=== PATIENT | male | born 1970 | race Caucasian/White ===

== ENCOUNTER → 2018-04-09 | Outpatient (CLI) | payer BC ==
[~2018-04-09] MED LIST: AMOX250C17 PO; FINA5TAB4 PO; MELO15TA24 PO; MINO50CA3 PO; PHEN15CA2 PO; PRED5TAB PO; TOPI15CA PO
== END | disposition home or self-care (01) ==
LOC: RAD 14:55
PROVIDERS: ATTEND Nurse Practitioner
DX: J98.4 Other disorders of lung (principal); R59.0 Localized enlarged lymph nodes; K22.8 Other specified diseases of esophagus; I25.10 Atherosclerotic heart disease of native coronary artery without angina pectoris; Z87.891 Personal history of nicotine dependence
CPT/HCPCS: 71250

== ENCOUNTER 2018-04-10 09:50 | Day surgery (SDC) | payer BC ==
[~2018-04-10] VITALS: Ht 177.8 cm; Wt 98.9 kg
[2018-04-10 10:19] VITALS: BP 113/76
[2018-04-10] MEDS ORDERED: MELO15TA24 PO (10:29)
[2018-04-10] MEDS ORDERED: PHEN15CA2 PO (10:29)
[2018-04-10] MEDS ORDERED: MINO50CA3 PO (10:29)
[2018-04-10] MEDS ORDERED: PRED5TAB PO (10:29)
[2018-04-10] MEDS ORDERED: FINA5TAB4 PO (10:29)
[2018-04-10] MEDS ORDERED: TOPI15CA PO (10:29)
[2018-04-10] MEDS ORDERED: AMOX250C17 PO (11:26)
[2018-04-10] MEDS ORDERED: FENTANYL PF 100 MCG/2ML ONE (11:33)
[2018-04-10] MEDS ORDERED: MIDAZOLAM 1 MG/ML, 5ML ONE (11:33)
[2018-04-10] MEDS ORDERED: SODIUM CHLORIDE 0.9% 1,000 ML IV SCH (11:52)
[2018-04-10 11:55] LABS: BASOPHILS # (AUTO) 0.08 x10^3/uL (0-0.1); BASOPHILS % (AUTO) 1 % (0-1); EOSINOPHILS % (AUTO) 3 % (1-7); LYMPHOCYTES # (AUTO) 2.35 x10^3/uL (1-3.4); LYMPHOCYTES % (AUTO) 25 % (22-44); MD NO; MEAN CORPUSCULAR HEMOGLOBIN 28.3 pg (27.5-34.5); MEAN CORPUSCULAR HGB CONC 33.8 g/dL (33.2-36.2); MEAN CORPUSCULAR VOLUME 83.7 fL (81-97); MEAN PLATELET VOLUME 7.2 fL (7.4-10.4); MONOCYTES # (AUTO) 0.71 x10^3/uL (0.2-0.8); MONOCYTES % (AUTO) 8 % (2-9); NEUTROPHILS # (AUTO) 6.06 x10^3/uL (1.8-6.8); NEUTROPHILS % (AUTO) 64 % (42-75); PLATELET COUNT 331 x10^3/uL (130-400); RED BLOOD COUNT 5.42 x10^6/uL (4.38-5.82)
[2018-04-10] MEDS ORDERED: LIDOCAINE 1%, 50ML ONE (12:00)
[2018-04-10] MEDS ORDERED: LIDOCAINE 4% TOPICAL SOLUTION 50 ML ONE (12:00)
[2018-04-10] MEDS ORDERED: LIDOCAINE GEL 2%, 5ML ONE (12:00)
[2018-04-10 12:02] LABS: PROTHROMBIN TIME 10.4 Seconds (9.6-11.5)
== END 2018-04-10 15:55 | disposition home or self-care (01) ==
LOC: OUT 09:50
PROVIDERS: ATTEND Internal Medicine
DX: J98.4 Other disorders of lung (principal); D71 Functional disorders of polymorphonuclear neutrophils; Z87.01 Personal history of pneumonia (recurrent); Z79.899 Other long term (current) drug therapy; Z88.0 Allergy status to penicillin
CPT/HCPCS: 31624; 31628; 36415; 71045; 85025; 85610; 85730; 87015; 87070; 87102; 87116; 87205; 87206; 88108; 88112; 88305; 99152; 99153; J2250; J3010; J3490

== ENCOUNTER → 2018-05-15 | Outpatient (CLI) | payer BC | END | disposition home or self-care (01) | LOC: CFH 14:57 | PROVIDERS: ATTEND Internal Medicine | DX: R91.8 Other nonspecific abnormal finding of lung field (principal) | CPT/HCPCS: 71250 ==

== ENCOUNTER 2018-10-20 10:16 | Inpatient (IN) | payer BC ==
[~2018-10-20] VITALS: Ht 177.8 cm; Wt 95.0 kg
[2018-10-20] MEDS ORDERED: albuterol inhaler (10:27)
--- NOTE | 2018-10-20 10:27 | NUR ---
pt bib ems for sudden onset left sided cp radiating to back starting today at 07:30. iv established [employer] by ems, ekg complete. conencted to all monitors.vss. edmd to bedside for assessment. awaiting orders.
[2018-10-20] MEDS ORDERED: SODIUM CHLORIDE FLUSH 10ML SYR IVF ONE (10:30)
[2018-10-20] MEDS ORDERED: HYDROmorphone 1 MG/ML, 1ML AMP IVPush PRN (10:30)
[2018-10-20] MEDS ORDERED: HYDROmorphone 1 MG/ML, 1ML VIAL ONE (10:36)
[2018-10-20] MEDS ORDERED: KETOROLAC 30 MG/1 ML IVPush ONE (11:00)
[2018-10-20] MEDS ORDERED: LEVOFLOXACIN/PMX 750MG/150ML 150 ML IVPB ONE (11:00)
[2018-10-20 11:02] LABS: MEAN CORPUSCULAR HEMOGLOBIN 29.2 pg (27.5-34.5); MEAN CORPUSCULAR HGB CONC 33.6 g/dL (33.2-36.2); MEAN CORPUSCULAR VOLUME 86.8 fL (81-97); MEAN PLATELET VOLUME 7.5 fL (7.4-10.4); PLATELET COUNT 288 x10^3/uL (130-400); RED BLOOD COUNT 5.05 x10^6/uL (4.38-5.82)
[2018-10-20 11:13] LABS: ALBUMIN 3.7 g/dL (3.4-5.0); ANION GAP 4 mmol/L (5-15); CALCIUM 8.6 mg/dL (8.5-10.1); CHLORIDE 109 mmol/L (98-107); CREATININE 0.71 mg/dL (0.7-1.3)
[2018-10-20 11:17] LABS: TROPONIN I < 0.015 ng/mL (0.000-0.045)
[2018-10-20] MEDS ORDERED: LEVOFLOXACIN/PMX 750MG/150ML 150 ML ONE (11:18)
[2018-10-20] MEDS ORDERED: KETOROLAC 30 MG/1 ML ONE (11:18)
--- NOTE | 2018-10-20 11:33 | NUR ---
pt medicated per sep. blood cultures x2 drawn prior to starting abx. pt resting in room with lights dimmed. no needs at this time. awaiting lab results.
[2018-10-20 11:44] LABS: BASOPHILS # (AUTO) 0.03 x10^3/uL (0-0.1); BASOPHILS % (AUTO) 0 % (0-1); EOSINOPHILS # (AUTO) 0.05 x10^3/uL (0-0.4); EOSINOPHILS % (AUTO) 0 % (1-7); LYMPHOCYTES # (AUTO) 0.78 x10^3/uL (1-3.4); LYMPHOCYTES % (AUTO) 4 % (22-44); MD SCAN; MONOCYTES # (AUTO) 0.68 x10^3/uL (0.2-0.8); MONOCYTES % (AUTO) 3 % (2-9); NEUTROPHILS # (AUTO) 18.38 x10^3/uL (1.8-6.8); NEUTROPHILS % (AUTO) 92 % (42-75)
[2018-10-20 11:46] LABS: RAPID INFLUENZA A Negative (Negative); RAPID INFLUENZA B Negative (Negative)
--- NOTE | 2018-10-20 12:12 | NUR ---
pt to ct at this time.
--- NOTE | 2018-10-20 12:26 | NUR ---
pt back from ct. no needs expressed. vss. call light wtihin reach.
[2018-10-20] MEDS ORDERED: OMNIPAQUE 350 MG/ML, 100ML BOTTLE ONE (12:32)
[2018-10-20] MEDS ORDERED: LABETALOL 5MG/ML, 20ML IVPush PRN (13:30)
[2018-10-20] MEDS ORDERED: ONDANSETRON 2MG/ML, 2ML IVPush PRN (13:30)
[2018-10-20] MEDS ORDERED: ONDANSETRON ODT 4 MG PO PRN (13:30)
[2018-10-20] MEDS ORDERED: POLYETHYLENE GLYCOL 17 GM PACKET PO PRN (13:30)
[2018-10-20 13:56] LABS: FREE T4 (FREE THYROXINE) 1.21 ng/dL (0.76-1.46)
[2018-10-20] MEDS ORDERED: LEVOFLOXACIN/PMX 750MG/150ML 150 ML IV SCH (14:00)
[2018-10-20 14:58] VITALS: BP 110/75
[2018-10-20] MEDS: GUAIFENESIN 200 MG TABLET PO SCH ×2 (15:10→20:26)
[2018-10-20] MEDS: ACETAMINOPHEN 325 MG TABLET PO PRN (15:25)
[2018-10-20 16:22] LABS: MICROSCOPIC NOT IND
[2018-10-20 16:26] LABS: CULTURE INDICATED? NO
[2018-10-20 19:21] VITALS: BP 113/69
[2018-10-20] MEDS: ENOXAPARIN 40 MG/0.4 ML SQ SCH (20:26)
[2018-10-20] MEDS: IBUPROFEN 600 MG TABLET PO PRN (20:26)
[2018-10-20] MEDS: ALBUTEROL/IPRATROPIUM 2.5MG/0.5MG, 3 ML NPPB SCH (20:47)
[2018-10-21 02:02] VITALS: BP 112/73
[2018-10-21] MEDS: GUAIFENESIN 200 MG TABLET PO SCH ×4 (05:12→20:55)
[2018-10-21 06:07] LABS: BASOPHILS # (AUTO) 0.04 x10^3/uL (0-0.1); BASOPHILS % (AUTO) 0 % (0-1); EOSINOPHILS # (AUTO) 0.11 x10^3/uL (0-0.4); EOSINOPHILS % (AUTO) 1 % (1-7); LYMPHOCYTES # (AUTO) 2.11 x10^3/uL (1-3.4); LYMPHOCYTES % (AUTO) 22 % (22-44); MD NO; MEAN CORPUSCULAR HEMOGLOBIN 29.4 pg (27.5-34.5); MEAN CORPUSCULAR HGB CONC 33.9 g/dL (33.2-36.2); MEAN CORPUSCULAR VOLUME 86.6 fL (81-97); MEAN PLATELET VOLUME 7.5 fL (7.4-10.4); MONOCYTES # (AUTO) 0.53 x10^3/uL (0.2-0.8); MONOCYTES % (AUTO) 6 % (2-9); NEUTROPHILS # (AUTO) 6.91 x10^3/uL (1.8-6.8); NEUTROPHILS % (AUTO) 71 % (42-75); PLATELET COUNT 294 x10^3/uL (130-400); RED BLOOD COUNT 5.06 x10^6/uL (4.38-5.82)
[2018-10-21 06:14] LABS: CHLORIDE 107 mmol/L (98-107)
[2018-10-21 06:32] LABS: ALANINE AMINOTRANSFERASE 30 U/L (12-78); ALBUMIN 3.6 g/dL (3.4-5.0); ALKALINE PHOSPHATASE 75 U/L (45-117); ANION GAP 5 mmol/L (5-15); BILIRUBIN,TOTAL 0.7 mg/dL (0.2-1.0); CALCIUM 9.1 mg/dL (8.5-10.1); THYROID STIMULATING HORMONE 0.478 mIU/L (0.358-3.740); TOTAL PROTEIN 7.1 g/dL (6.4-8.2)
[2018-10-21] MEDS: PANTOPRAZOLE 40 MG IV IVPush SCH (07:55)
[2018-10-21] MEDS: IBUPROFEN 600 MG TABLET PO PRN ×2 (07:56→17:04)
[2018-10-21] MEDS: SENNA/DOCUSATE TABLET PO SCH (07:56)
[2018-10-21 08:36] VITALS: BP 120/80
[2018-10-21] MEDS: ALBUTEROL/IPRATROPIUM 2.5MG/0.5MG, 3 ML NPPB SCH ×2 (09:00→19:33)
[2018-10-21] MEDS: ACETAMINOPHEN 325 MG TABLET PO PRN ×2 (12:21→20:55)
[2018-10-21 14:32] VITALS: BP 119/73
[2018-10-21 19:46] VITALS: BP 115/69
[2018-10-21] MEDS: ENOXAPARIN 40 MG/0.4 ML SQ SCH (20:55)
[2018-10-22 01:44] VITALS: BP 119/67
[2018-10-22] MEDS: GUAIFENESIN 200 MG TABLET PO SCH (05:20)
[2018-10-22 05:53] LABS: BASOPHILS # (AUTO) 0.06 x10^3/uL (0-0.1); BASOPHILS % (AUTO) 1 % (0-1); EOSINOPHILS # (AUTO) 0.21 x10^3/uL (0-0.4); EOSINOPHILS % (AUTO) 3 % (1-7); LYMPHOCYTES # (AUTO) 2.68 x10^3/uL (1-3.4); LYMPHOCYTES % (AUTO) 33 % (22-44); MD NO; MEAN CORPUSCULAR HEMOGLOBIN 28.3 pg (27.5-34.5); MEAN CORPUSCULAR HGB CONC 32.7 g/dL (33.2-36.2); MEAN CORPUSCULAR VOLUME 86.5 fL (81-97); MEAN PLATELET VOLUME 7.5 fL (7.4-10.4); MONOCYTES # (AUTO) 0.59 x10^3/uL (0.2-0.8); MONOCYTES % (AUTO) 7 % (2-9); NEUTROPHILS # (AUTO) 4.64 x10^3/uL (1.8-6.8); NEUTROPHILS % (AUTO) 57 % (42-75); PLATELET COUNT 288 x10^3/uL (130-400); RED BLOOD COUNT 4.69 x10^6/uL (4.38-5.82); RED CELL DISTRIBUTION WIDTH 14.5 % (9.4-14.8)
[2018-10-22 06:05] LABS: ALBUMIN 3.1 g/dL (3.4-5.0); ANION GAP 7 mmol/L (5-15); CALCIUM 8.4 mg/dL (8.5-10.1); CHLORIDE 109 mmol/L (98-107)
[2018-10-22 06:06] LABS: CREATININE 0.67 mg/dL (0.7-1.3)
[2018-10-22] MEDS: PANTOPRAZOLE 40 MG IV IVPush SCH (07:43)
[2018-10-22] MEDS: SENNA/DOCUSATE TABLET PO SCH (08:50)
[2018-10-22] MEDS ORDERED: IBUP-1222 PO (08:54)
[2018-10-22] MEDS ORDERED: LEVO750T26 PO (08:54)
[2018-10-22] MEDS ORDERED: GUAI200T3 PO (08:54)
[2018-10-22] MEDS ORDERED: OMEP-110 PO (08:54)
[2018-10-22 09:15] VITALS: BP 111/74
[2018-10-22] MEDS: ALBUTEROL/IPRATROPIUM 2.5MG/0.5MG, 3 ML NPPB SCH (09:59)
== END 2018-10-22 10:35 | disposition home or self-care (01) | DRG 871 ==
LOC: ED 11:55 → EDIP 13:09 → 3NE 13:56 → DCLOUNGE 10-22 10:30
PROVIDERS: ADMIT Internal Medicine; ATTEND Internal Medicine
DX: A41.9 Sepsis, unspecified organism (principal); J15.9 Unspecified bacterial pneumonia; D64.9 Anemia, unspecified; J45.909 Unspecified asthma, uncomplicated; Z66 Do not resuscitate; Z83.3 Family history of diabetes mellitus; Z87.01 Personal history of pneumonia (recurrent); Z87.891 Personal history of nicotine dependence; Z88.0 Allergy status to penicillin
CPT/HCPCS: 36415; 84145; 87400; 99291; J7620; 71045; 71275; 80048; 80053; 81003; 82040; 83605; 83735; 84100; 84439; 84443; 84484; 85025; 85379; 87040; 93005; 94640; 96374; 96375; G0378; J1170; J1650; J1885; J1956; Q9967; C9113

== ENCOUNTER → 2019-01-13 | Outpatient (CLI) | payer BC ==
[~2019-01-13] MED LIST changes: +GUAI200T3 PO; +IBUP-1222 PO; +LEVO750T26 PO; +OMEP-110 PO; +albuterol inhaler
== END | disposition home or self-care (01) ==
LOC: CFH 14:14
PROVIDERS: ATTEND Internal Medicine
DX: R06.02 Shortness of breath (principal)
CPT/HCPCS: 71250

== ENCOUNTER → 2019-07-23 | Outpatient (CLI) | payer BC ==
[~2019-07-23] MED LIST changes: +ALPR0.5T7 PO; +FLUT200B INH; -GUAI200T3 PO; +GUAI200T37 PO; +HYDR15SO3 PO; +SERT25TA PO; -TOPI15CA PO; +TOPI15CA10 PO
== END | disposition home or self-care (01) ==
LOC: CFH 11:18
PROVIDERS: ATTEND Internal Medicine
DX: R91.8 Other nonspecific abnormal finding of lung field (principal); M54.5 Low back pain; I25.10 Atherosclerotic heart disease of native coronary artery without angina pectoris; M47.814 Spondylosis without myelopathy or radiculopathy, thoracic region; M85.88 Other specified disorders of bone density and structure, other site; Z88.0 Allergy status to penicillin
CPT/HCPCS: 71250